=== PATIENT | male | born 1980 | race Caucasian/White ===

== ENCOUNTER 2019-08-19 00:20 | Emergency (ER) | payer OTHER ==
[2019-08-19 00:43] LABS: BASOPHILS # (AUTO) 0.1 10^3/uL (0.0-0.1); BASOPHILS % (AUTO) 1.2 %; EOSINOPHILS # (AUTO) 0.1 10^3/uL (0.0-0.7); EOSINOPHILS % (AUTO) 1.5 %; HGB - HEMOGLOBIN 14.3 g/dL (14.0-18.0); LYMPHOCYTES # (AUTO) 2.8 10^3/uL (1.5-3.5); MEAN CORPUSCULAR HEMOGLOBIN 29.8 pg (27.0-31.0); MEAN CORPUSCULAR HGB CONC 34.9 g/dL (32.0-36.0); MEAN CORPUSCULAR VOLUME 85.4 fL (80.0-94.0); MEAN PLATELET VOLUME 10.6 fL (7.4-11.4); MONOCYTES # (AUTO) 0.7 10^3/uL (0.0-1.0); MONOCYTES % (AUTO) 9.9 %; PLT - PLATELET COUNT 222 10^3/uL (130-450); RED CELL DISTRIBUTION WIDTH 12.7 % (12.0-15.0); WHITE BLOOD COUNT 6.7 x10^3/uL (4.8-10.8)
[2019-08-19 00:56] LABS: ALBUMIN 4.5 g/dL (3.2-5.5); ALBUMIN/GLOBULIN RATIO 1.5 (1.0-2.2); CALCIUM 8.8 mg/dL (8.5-10.3); TOTAL PROTEIN 7.6 g/dL (6.7-8.2)
--- NOTE | 2019-08-19 01:14 | XRAY Report ---
Reason: L sided chest pain Procedure Date: 08/19/2019 Accession Number: [id number] / [id number] Procedure: XR - Chest 2 View X-Ray CPT Code: 17099 Final Report FULL RESULT: EXAM: CHEST RADIOGRAPHY EXAM DATE: 08/19/2019 12:57 AM. CLINICAL HISTORY: L sided chest pain. COMPARISON: None. TECHNIQUE: 2 views. FINDINGS: Lungs/Pleura: No focal opacities evident. No pleural effusion. No pneumothorax. Normal volumes. Mediastinum: Heart and mediastinal contours are unremarkable. Other: None. IMPRESSION: Normal 2-view chest radiography. [facility]
--- NOTE | 2019-08-19 01:34 | ED Physician Documentation ---
PD HPI CHEST PAIN - Stated complaint Stated Complaint: ARM PX,CHEST PAIN - Chief complaint Chief Complaint: Cardiac - History obtained from History obtained from: Patient, Family - History of Present Illness Timing - onset: Today Timing - onset during: Rest Timing - duration: Hours Timing - details: Abrupt onset, Still present Quality: Sharp, Pain Location: Left chest, Left shoulder/arm Radiation: Left upper extremity Improved by: Nothing Worsened by: Other (nothing) Associated symptoms: No: Shortness of air, Diaphoresis, Nausea, Vomiting, Feeling faint / dizzy, General Weakness, Palpitations, Cough Similar symptoms before: No diagnosis Recently seen: Not recently seen - Additional information Additional information: 38-year-old male was at rest this evening when he developed some pain in the left chest and the left pectoralis muscle area and radiation of this pain into the left shoulder. He does not have any modifying factors of this. He is not able to make the pain worse or better with any specific maneuver. He states that he has had a pain similar to this several times that never lasted over the past year. He denies any family history of coronary disease. He states that he would have stayed at home but his insisted he come to the emergency department for evaluation. He states the pain is annoying and present but not severe. He is not having other specific symptoms no shortness of breath no lightheadedness no diaphoresis and no nausea. He has not been evaluated for chest pain previously. Review of Systems Constitutional: denies: Fever, Chills, Myalgias Eyes: denies: Decreased vision Ears: denies: Ear pain, Drainage/discharge Nose: denies: Rhinorrhea / runny nose, Congestion Throat: denies: Sore throat Cardiac: reports: Chest pain / pressure. denies: Palpitations, Pedal edema, Calf pain Respiratory: denies: Dyspnea, Cough GI: denies: Abdominal Pain, Nausea, Vomiting : denies: Dysuria, Frequency Skin: denies: Rash, Lesions Musculoskeletal: denies: Neck pain, Back pain, Extremity pain Neurologic: denies: Generalized weakness, Focal weakness, Numbness PD PAST MEDICAL HISTORY - Past Medical History Past Medical History: No - Past Surgical History Past Surgical History: Yes General: Appendectomy - Present Medications Home Medications: Ambulatory Orders Medication Instructions Recorded Confirmed No Known Home Medications 08/19/19 08/19/19 - Allergies Allergies/Adverse Reactions: Allergies Allergy/AdvReac Type Severity Reaction Status Date / Time No Known Drug Allergies Allergy Verified 08/19/19 00:45 - Social History Does the pt smoke?: No Smoking Status: Never smoker Does the pt drink ETOH?: Yes ETOH Use: Liquor Does the pt have substance abuse?: No - Immunizations Immunizations are current?: Yes - POLST Patient has POLST: No PD ED PE NORMAL - Vitals Vital signs reviewed: Yes (hypertensive mild ) - General General: Alert and oriented X 3, No acute distress, Well developed/nourished - HEENT HEENT: Atraumatic, PERRL - Neck Neck: Supple, no meningeal sign, No bony TTP - Cardiac Cardiac: RRR, No murmur - Respiratory Respiratory: No respiratory distress, Clear bilaterally, Other (no chest wall tenderness ) - Abdomen Abdomen: Soft, Non tender - Back Back: No CVA TTP, No spinal TTP - Derm Derm: Normal color, Warm and dry, No rash - Extremities Extremities: No deformity, No tenderness to palpate, Normal ROM s pain, No edema, No calf tenderness / cord - Neuro Neuro: Alert and oriented X 3, 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, No motor deficit, No sensory deficit, Normal speech Eye Opening: Spontaneous Motor: Obeys Commands Verbal: Oriented GCS Score: 15 - Psych Psych: Normal mood, Normal affect Results - Vitals Vitals: Vital Signs - 24 hr 08/19/19 08/19/19 08/19/19 00:20 00:25 00:54 Temperature 36.9 C Heart Rate 63 58 L Respiratory 16 15 Rate Blood Pressure 131/91 H 141/94 H Blood Pressure 131/91 H [Left] Blood Pressure 141/94 H [Right] O2 Saturation 98 98 08/19/19 01:23 Temperature Heart Rate 69 Respiratory 12 Rate Blood Pressure 126/70 Blood Pressure [Left] Blood Pressure [Right] O2 Saturation 97 Oxygen O2 Source Room air - EKG (time done) 0026 Rate: Rate (enter#) (69) Rhythm: NSR Compare to prior EKG: Old EKG unavailable Computer interpretation: Agree with computer - Labs Labs: Laboratory Tests 08/19/19 08/19/19 08/19/19 00:25 00:25 00:25 WBC 6.7 RBC 4.80 Hgb 14.3 Hct 41.0 L MCV 85.4 MCH 29.8 MCHC 34.9 RDW 12.7 Plt Count 222 MPV 10.6 Neut # (Auto) 3.0 Lymph # (Auto) 2.8 [place] # (Auto) 0.7 Eos # (Auto) 0.1 Baso # (Auto) 0.1 Absolute Nucleated RBC 0.00 Nucleated RBC % 0.0 Sodium 139 Potassium 3.8 Chloride 103 Carbon Dioxide 25 Anion Gap 11.0 BUN 17 Creatinine 1.0 Estimated GFR (MDRD) 83 L Glucose 107 H Calcium 8.8 Total Bilirubin 1.0 AST 24 ALT 25 Alkaline Phosphatase 64 Troponin I High Sens < 2.3 L Total Protein 7.6 Albumin 4.5 Globulin 3.1 Albumin/Globulin Ratio 1.5 Lipase 41 - Rads (name of study) chest Radiology: Prelim report reviewed (Impression: normal two-view chest radiography.), EMP read indepedently, See rad report PD MEDICAL DECISION MAKING - ED course Complexity details: reviewed results, re-evaluated patient, considered differential, d/w patient, d/w family ED course: Previously well 38-year-old male with nonmodifiable left chest pain without other signs or symptoms has a normal-appearing electrocardiogram a normal sensitive troponin 2 hours after pain and normal chest x-ray and blood work. He does complain of the pain as intermittent and sharp. There is no rash to the skin. I have discussed possible shingles with the patient and the signs to watch for and follow up. He does eventually admit to some physical use moving a couch and working on his truck but I am unable to find tenderness or change in pain with movement. We were able to reassure the patient and his that this is not an acute coronary syndrome. Departure - Departure Disposition: 01 Home, Self Care Clinical Impression: Atypical chest pain Condition: Stable Instructions: ED Chest Pain Atypical Unkn Cause Follow-Up: [facility] [Provider Group]
[2019-08-19 01:59] VITALS: BP 107/67
== END 2019-08-19 01:59 | disposition home or self-care (01) ==
LOC: ED 00:20
DX: R07.89 Other chest pain (principal)
CPT/HCPCS: 36415; 71046; 80053; 83690; 84484; 85025; 93005; 99284

== ENCOUNTER 2020-06-21 23:26 | Emergency (ER) | payer OTHER ==
--- NOTE | 2020-06-21 23:28 | ED Physician Documentation ---
History of Present Illness - Stated complaint Stated Complaint: CP - History obtained from History obtained from: Patient - Additonal information Additional information: Patient is a 39-year-old male who is otherwise healthy with no medical problems no history of PE or DVT here DC or stroke. Non-smoker no hypertension or obesity no family history of coronary artery disease at a young age. Presents with chest pain that radiated to his left arm that is since resolved with no nausea or vomiting. No treatment prior to arrival. Review of Systems Constitutional: reports: Reviewed and negative Eyes: reports: Reviewed and negative Ears: reports: Reviewed and negative Nose: reports: Reviewed and negative Throat: reports: Reviewed and negative Cardiac: reports: Chest pain / pressure Respiratory: reports: Reviewed and negative GI: reports: Reviewed and negative : reports: Reviewed and negative Skin: reports: Reviewed and negative Musculoskeletal: reports: Reviewed and negative Neurologic: reports: Reviewed and negative Psychiatric: reports: Reviewed and negative Endocrine: reports: Reviewed and negative Immunocompromised: reports: Reviewed and negative PD PAST MEDICAL HISTORY - Past Surgical History Past Surgical History: Yes General: Appendectomy - Present Medications Home Medications: Ambulatory Orders Medication Instructions Recorded Confirmed No Known Home Medications 08/19/19 06/22/20 - Allergies Allergies/Adverse Reactions: Allergies Allergy/AdvReac Type Severity Reaction Status Date / Time No Known Drug Allergies Allergy Verified 06/21/20 23:38 - Social History Does the pt smoke?: No Smoking Status: Never smoker Does the pt drink ETOH?: Yes Does the pt have substance abuse?: No - Immunizations Immunizations are current?: Yes - POLST Patient has POLST: No PD ED PE NORMAL - Vitals Vital signs reviewed: Yes - General General: Alert and oriented X 3, No acute distress, Well developed/nourished - HEENT HEENT: Atraumatic, PERRL, EOMI, Ears normal, Moist mucous membranes, Pharynx benign, Dentition benign - Neck Neck: Supple, no meningeal sign, No bony TTP, No adenopathy, Thyroid normal, No JVD, No bruit - Cardiac Cardiac: RRR, No murmur, No gallop, No rub, Strong equal pulses - Respiratory Respiratory: No respiratory distress, Clear bilaterally - Abdomen Abdomen: Normal bowel sounds, Soft, Non tender, Non distended, No organomegaly - Male Male : Deferred - Rectal Rectal: Deferred - Back Back: No CVA TTP, No spinal TTP - Derm Derm: Normal color, Warm and dry, No rash - Extremities Extremities: No deformity, No tenderness to palpate, Normal ROM s pain, No edema, No calf tenderness / cord - Neuro Neuro: Alert and oriented X 3, 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, No motor deficit, No sensory deficit, Normal speech - Psych Psych: Normal mood, Normal affect Results - Vitals Vitals: Vital Signs - 24 hr 06/21/20 06/21/20 06/22/20 23:36 23:48 00:20 Temperature 36.8 C Heart Rate 66 59 L 61 Respiratory 14 14 16 Rate Blood Pressure 136/82 H 130/82 H 133/88 H O2 Saturation 96 95 96 06/22/20 06/22/20 00:43 02:00 Temperature Heart Rate 57 L 50 L Respiratory 20 12 Rate Blood Pressure 131/85 H 114/75 O2 Saturation 96 98 Oxygen O2 Source Room air - EKG (time done) 23:30 Rate: Other (no stemi) - Labs Labs: Laboratory Tests 06/21/20 06/21/20 06/21/20 23:45 23:45 23:45 WBC 6.4 RBC 4.76 Hgb 14.8 Hct 41.2 L MCV 86.6 MCH 31.1 H MCHC 35.9 RDW 12.0 Plt Count 224 MPV 11.2 Neut # (Auto) 3.3 Lymph # (Auto) 2.3 [place] # (Auto) 0.7 Eos # (Auto) 0.1 Baso # (Auto) 0.0 Absolute Nucleated RBC 0.00 Nucleated RBC % 0.0 PT 12.3 INR 1.1 APTT 28.1 D-Dimer 235.6 Sodium 134 L Potassium 3.5 Chloride 102 Carbon Dioxide 25 Anion Gap 7.0 BUN 18 Creatinine 1.2 Estimated GFR (MDRD) 67 L Glucose 115 H Calcium 8.3 L Total Bilirubin 0.9 AST 27 ALT 37 Alkaline Phosphatase 66 Total Creatine Kinase 149 Troponin I High Sens B-Natriuretic Peptide Total Protein 6.8 Albumin 4.1 Globulin 2.7 Albumin/Globulin Ratio 1.5 Lipase 25 06/21/20 06/21/20 23:45 23:45 WBC RBC Hgb Hct MCV MCH MCHC RDW Plt Count MPV Neut # (Auto) Lymph # (Auto) [place] # (Auto) Eos # (Auto) Baso # (Auto) Absolute Nucleated RBC Nucleated RBC % PT INR APTT D-Dimer Sodium Potassium Chloride Carbon Dioxide Anion Gap BUN Creatinine Estimated GFR (MDRD) Glucose Calcium Total Bilirubin AST ALT Alkaline Phosphatase Total Creatine Kinase Troponin I High Sens 2.9 B-Natriuretic Peptide 33 Total Protein Albumin Globulin Albumin/Globulin Ratio Lipase PD MEDICAL DECISION MAKING - ED course Complexity details: reviewed old records, reviewed results, re-evaluated patient, considered differential, d/w patient, d/w family, other ED course: 39-year-old male who is otherwise healthy presented with chest pain and left arm pain that is since resolved EKG shows no STEMI troponins negative d-dimer was mildly elevated CTA of the chest shows no pulmonary embolism or aneurysm it did mention one gallstone his bilirubin as well as his transaminases are normal. He is asymptomatic now he has good follow-up with his primary care provider tomorrow. Departure - Departure Disposition: Home, Self Care Clinical Impression: Gallstones Chest pain Qualifiers: Chest pain type: unspecified Qualified Code(s): R07.9 - Chest pain, unspecified Condition: Stable Instructions: ED Chest Pain NonCardiac, Gallstones Dc Follow-Up: your, doctor [Other] Comments: Follow-up with your primary care provider this week. Your test today showed no evidence of a heart attack. or pulmonary embolus it is noted that you have one gallstone. This may or may not be to cause your pain however I like you to follow-up with your primary care provider in the next week if possible. Return to the emergency department with any concerns.
[2020-06-21 23:54] LABS: BASOPHILS % (AUTO) 0.6 %; EOSINOPHILS # (AUTO) 0.1 10^3/uL (0.0-0.7); EOSINOPHILS % (AUTO) 1.6 %; HGB - HEMOGLOBIN 14.8 g/dL (14.0-18.0); LYMPHOCYTES # (AUTO) 2.3 10^3/uL (1.5-3.5); LYMPHOCYTES % (AUTO) 35.8 %; MEAN CORPUSCULAR HEMOGLOBIN 31.1 pg (27.0-31.0); MEAN CORPUSCULAR HGB CONC 35.9 g/dL (32.0-36.0); MEAN CORPUSCULAR VOLUME 86.6 fL (80.0-94.0); MEAN PLATELET VOLUME 11.2 fL (7.4-11.4); MONOCYTES # (AUTO) 0.7 10^3/uL (0.0-1.0); MONOCYTES % (AUTO) 10.2 %; NEUTROPHILS # (AUTO) 3.3 10^3/uL (1.5-6.6); PLT - PLATELET COUNT 224 10^3/uL (130-450); RED BLOOD COUNT 4.76 10^6/uL (4.70-6.10); WHITE BLOOD COUNT 6.4 x10^3/uL (4.8-10.8)
[2020-06-22] LABS: INR 1.1 (0.8-1.2); PT - PROTHROMBIN TIME 12.3 secs (9.9-12.6)
[2020-06-22 00:06] LABS: ALBUMIN 4.1 g/dL (3.2-5.5); ALBUMIN/GLOBULIN RATIO 1.5 (1.0-2.2); BILIRUBIN,TOTAL 0.9 mg/dL (0.2-1.0); CALCIUM 8.3 mg/dL (8.5-10.3); CREATININE 1.2 mg/dL (0.6-1.2); TOTAL PROTEIN 6.8 g/dL (6.7-8.2)
[2020-06-22 00:07] LABS: D-DIMER 235.6 ng/mL (200.0-255.0)
[2020-06-22 00:14] LABS: PARTIAL THROMBOPLASTIN TIME 28.1 secs (24.9-33.3)
[2020-06-22] MEDS ORDERED: IOVERSOL 320 100 ML VIAL IVP ONE ×3 (01:01→02:27)
[2020-06-22 02:42] VITALS: BP 117/79
--- NOTE | 2020-06-22 07:21 | CT Report ---
PROCEDURE: ANGIO CHEST W/WO INDICATIONS: cp/sob rule out pe CONTRAST: IV CONTRAST: Optiray 320 ml: 80 PO CONTRAST: *NO PO CONTRAST TECHNIQUE: After the administration of intravenous contrast, 2 mm thick sections acquired from the pulmonary api brit to the posterior costophrenic angles. 3-dimensional maximum intensity projection (MIP) coronal a nd sagittal reformats were then acquired through the thorax. For radiation dose reduction, the follow ing was used: automated exposure control, adjustment of mA and/or kV according to patient size. COMPARISON: Chest x-ray 06/21/2020 and 08/19/2019 FINDINGS: Image quality: Excellent. Pulmonary arteries: Pulmonary arteries are normal in size, and demonstrate no intraluminal filling d efects to suggest central pulmonary embolism. Lungs and pleura: Lungs are clear. No pleural effusions or pneumothorax. Central and peripheral ai rways are patent. Mediastinum: Heart size is normal, without pericardial effusion. No mediastinal or hilar adenopathy . Thoracic aorta is normal in caliber and enhancement. Esophagus is normal in caliber, without hiat al hernia. Bones and chest wall: No suspicious bony lesions. Ribs and thoracic spine appear intact throughout. The thyroid is normal. No axillary or supraclavicular adenopathy. Abdomen: Calcified gallstones noted. Visualized upper abdominal solid organs appear normal in the ea rly arterial phase of enhancement. IMPRESSION: 1. No pulmonary embolus. 2. No lung consolidation or pleural effusions. 3. Cholelithiasis. Reviewed by: Mi Mauricio MD, PhD on 06/22/2020 7:19 AM PDT Approved by: Mi Mauricio MD, PhD on 06/22/2020 7:19 AM PDT Station ID: [id number]
--- NOTE | 2020-06-22 08:29 | XRAY Report ---
PROCEDURE: Chest 1 View X-Ray INDICATIONS: cp/sob TECHNIQUE: One view of the chest was acquired. COMPARISON: 08/19/2019 FINDINGS: Surgical changes and devices: None. Lungs and pleura: No pleural effusions or pneumothorax. Lungs are clear. Mediastinum: Mediastinal contours appear normal. Heart size is normal. Bones and chest wall: No suspicious bony lesions. Overlying soft tissues appear unremarkable. IMPRESSION: No acute cardiopulmonary disease process. Reviewed by: Mi Mauricio MD, PhD on 06/22/2020 8:28 AM PDT Approved by: Mi Mauricio MD, PhD on 06/22/2020 8:28 AM PDT Station ID: [id number]
== END 2020-06-22 02:42 | disposition home or self-care (01) ==
LOC: ED 23:26
DX: R07.9 Chest pain, unspecified (principal); M79.602 Pain in left arm; K80.20 Calculus of gallbladder without cholecystitis without obstruction
CPT/HCPCS: 36415; 71045; 71275; 80053; 82550; 83690; 83880; 84484; 85025; 85379; 85610; 85730; 93005; 99284; Q9967